=== PATIENT | female | born 1975 | race African-American/Black ===

== ENCOUNTER 2016-08-23 18:55 | Observation (INO) | payer MEDICAID ==
[~2016-08-23] VITALS: Ht 172.7 cm; Wt 111.0 kg
[~2016-08-23 18:55] MED LIST: FentaNYL CITRATE-PF 100 MCG/2 ML VIAL IVP ONE; MIDAZOLAM HCL 2 MG/2 ML VIAL IVP ONE
[2016-08-23] MEDS ORDERED: MORPHINE SULFATE 4 MG/ML SYRINGE IVP ONE (19:30)
[2016-08-23] MEDS ORDERED: SODIUM CHLORIDE 0.9% 1,000 ML IV ONE (19:30)
[2016-08-23] MEDS ORDERED: ONDANSETRON HCL 4 MG/2 ML VIAL IVP ONE (19:30)
[2016-08-23 19:44] LABS: BASOPHILS % (AUTO) 0.4 % (0.0-2.0); EOSINOPHILS % (AUTO) 0 % (1.0-6.0); HEMATOCRIT 29.1 % (36-46); HEMOGLOBIN 9.6 g/dL (12.0-16.0); LYMPHOCYTES # (AUTO) 2.3 K/uL (1.0-4.8); LYMPHOCYTES % (AUTO) 35.2 % (22.0-44.0); MEAN CORPUSCULAR HEMOGLOBIN 30.3 pg (26.0-34.0); MEAN CORPUSCULAR HGB CONC 33.1 G/dL (31.0-37.0); MEAN CORPUSCULAR VOLUME 91 fL (80-100); MONOCYTES # (AUTO) 0.6 K/uL (0.1-1.0); MONOCYTES % (AUTO) 9.3 % (2.0-9.0); NEUTROPHILS # (AUTO) 3.6 K/uL (1.8-7.7); NEUTROPHILS % (AUTO) 55.1 % (40.0-70.0); PLATELET COUNT (AUTO) 229 K/uL (150-450); RED BLOOD CELL COUNT(AUTO) 3.19 MIL/uL (4.00-5.20); RED CELL DISTRIBUTION WIDTH 15.2 % (11.5-14.5); WHITE BLOOD COUNT (AUTO) 6.6 K/uL (4.5-11.0)
[2016-08-23 19:52] LABS: ANION GAP 6 mmol/L (8-16); CALCIUM, TOTAL 8.5 mg/dL (8.8-10.5); CARBON DIOXIDE 26 mmol/L (22-29); CHLORIDE 105 mmol/L (98-107); GLOMERULAR FILTR. RATE CALC > 60 mL/min (>60); POTASSIUM 3.9 mmol/L (3.5-5.1); SODIUM SERUM 137 mmol/L (136-145); UREA NITROGEN, BLOOD 16 mg/dL (7-18)
[2016-08-23 19:54] LABS: PROTHROMBIN TIME 10.7 SEC (9.4-11.6)
[2016-08-23 20:26] LABS: ALANINE AMINOTRANSFERASE 21 U/L (12-78); ALBUMIN 3.4 g/dL (3.4-5.0); ASPARTATE AMINOTRANSFERASE 17 U/L (15-37); BILIRUBIN,TOTAL 0.2 mg/dL (0.1-1.0); TOTAL PROTEIN, SERUM 6.7 g/dL (6.4-8.2)
[2016-08-23] MEDS ORDERED: HYDROmorphone 2 MG/ML SYRINGE IVP PRN ×2 (21:30→23:45)
[2016-08-23] MEDS ORDERED: FentaNYL CITRATE-PF 100 MCG/2 ML VIAL IVP PRN ×2 (21:30→23:45)
[2016-08-23] MEDS ORDERED: MEPERIDINE-PF 25 MG/ML SYRINGE IVP PRN ×2 (21:30→23:45)
[2016-08-23] MEDS ORDERED: RINGERS SOLUTION,LACTATED 1,000 ML IV ONE (21:40)
[2016-08-23] MEDS ORDERED: OXYTOCIN 10 UNITS/ML VIAL IM ONE (21:46)
[2016-08-23] MEDS ORDERED: METHYLERGONOVINE MALEATE 0.2 MG/ML VIAL ONE (21:47)
[2016-08-23 22:54] LABS: GLUCOSE, URINE (UA) NEGATIVE (NEGATIVE); KETONES,URINE NEGATIVE (NEGATIVE); OCCULT BLOOD,URINE LARGE (NEGATIVE); PH,URINE 5.5 (5.0-8.0); PROTEIN,URINE NEGATIVE (NEGATIVE)
[2016-08-23 22:57] LABS: ADD UA MICROSCOPIC YES; LEUKOCYTE ESTERASE ,URINE TRACE (NEGATIVE)
[2016-08-23 23:01] LABS: APPEARANCE,URINE HAZY (CLEAR); RBC,URINE 26-50 /HPF (0-2); SQUAMOUS EPITHELIAL CELL,UR Few /LPF (None Seen)
[2016-08-24] MEDS ORDERED: RINGERS SOLUTION,LACTATED 1,000 ML IV ONE (01:00)
[2016-08-24 01:05] VITALS: BP 104/64
[2016-08-24 04:27] VITALS: BP 134/74
[2016-08-24 04:30] VITALS: BP 98/56
[2016-08-24] MEDS ORDERED: IBUP100O11 PO ×6 (05:40→05:52)
[2016-08-24] MEDS ORDERED: FERR-89 PO (05:41)
[2016-08-24] MEDS ORDERED: DOCU-174 PO ×3 (05:42→05:54)
[2016-08-24] MEDS ORDERED: FERR-72 PO ×2 (05:51→05:54)
[2016-08-24] MEDS ORDERED: DEXAMETHASONE SOD PHOS 4 MG/ML VIAL IVP ONE (05:59)
[2016-08-24] MEDS ORDERED: SUCCINYLCHOLINE CHLORIDE 20 MG/ML 10 ML VIAL IVP ONE (05:59)
[2016-08-24] MEDS ORDERED: ONDANSETRON HCL 4 MG/2 ML VIAL IVP ONE (05:59)
[2016-08-24] MEDS ORDERED: PROPOFOL 1% 20 ML VIAL IVP ONE (05:59)
[2016-08-24] MEDS ORDERED: LIDOCAINE HCL/PF 2% 5 ML VIAL IM ONE (05:59)
[2016-08-24] MEDS ORDERED: OXYGEN THERAPY IH SCH ×2 (08:00)
== END 2016-08-24 06:00 | disposition home or self-care (01) ==
LOC: EMS 18:58 → 6N 22:27 → INTOOBSV 22:27
PROVIDERS: ADMIT Obstetrics & Gynecology; ATTEND Obstetrics & Gynecology
DX: O03.4 Incomplete spontaneous abortion without complication (principal)
CPT/HCPCS: 36415; 58120; 76805; 80053; 81001; 84702; 85025; 85610; 87077; 87081; 87086; 87186; 88305; 96374; 96375; 99285; G0378 ×2; J0330; J1100; J2250; J2270; J2405 ×2; J2704; J3010; J3490; J7030; J7120 ×2; J2210; J2590